=== PATIENT | female | born 1965 | race Caucasian/White ===

== ENCOUNTER → 2021-01-31 | Outpatient (CLI) | payer BC ==
[~2021-01-31] MED LIST: BREO ELLIPTA 11 EACH INH; NORCO 7.5-3251 EACH PO; PREDNISONE 10 M10 MG PO; PROTONIX 40 MG40 M1 PO; PROVENTIL HFA 61 INH INH
== END ==
LOC: CT 07:41
DX: R10.9 Unspecified abdominal pain (principal)
CPT/HCPCS: Q9967